=== PATIENT | male | born 1965 | race Caucasian/White ===

== ENCOUNTER → 2020-06-16 13:44 | Outpatient (BNVA) | payer MEDICAID, SELFPAY | PROVIDERS: Family Provider Family Medicine; PCP Family Medicine; Visit Provider Specialist | DX: G40.109 Localization-related (focal) (partial) symptomatic epilepsy and epileptic syndromes with simple partial seizures, not intractable, without status epilepticus (principal); F32.9 Major depressive disorder, single episode, unspecified | CPT/HCPCS: 99213 ==

== ENCOUNTER 2020-06-16 16:51 | Outpatient (CLI) | payer MEDICAID, SELFPAY ==
[2020-06-20 15:13] LABS: Lamotrigine (Lamictal) Level 4.4 mcg/mL (4.0-18.0)
[2020-06-20 16:43] LABS: Levetiracetam Keppra 12.6 mcg/mL
== END 2020-06-16 16:52 | disposition home or self-care (01) ==
LOC: LAB 16:55
PROVIDERS: PCP Family Medicine; Visit Provider Specialist
DX: G40.909 Epilepsy, unspecified, not intractable, without status epilepticus (principal)
CPT/HCPCS: 80175; 80177